=== PATIENT | female | born 1945 | race African-American/Black ===

== ENCOUNTER 2017-12-09 22:55 | Inpatient (IN) | payer MEDICARE, BC ==
[~2017-12-09] VITALS: Ht 157.5 cm; Wt 53.4 kg
[~2017-12-09 22:55] MED LIST: AMOX1TAB64 PO; LEVO50TA5 PO; LOVA40TA2 PO; NIAC500T9 PO; TRAM-47 PO
[2017-12-09] MEDS ORDERED: SODIUM CHLORIDE 0.9% 1,000 ML IV ONE (23:43)
[2017-12-10] MEDS ORDERED: SODIUM CHLORIDE FLUSH 10ML SYR IVF ONE
[2017-12-10] MEDS ORDERED: ONDANSETRON 2MG/ML, 2ML IVPush ONE
[2017-12-10 00:06] LABS: MEAN CORPUSCULAR HEMOGLOBIN 30.7 pg (27.0-34.8); MEAN CORPUSCULAR VOLUME 93.1 fL (80-100); MEAN PLATELET VOLUME 8.5 fL (7.4-10.4); PLATELET COUNT 234 x10^3/uL (130-400); RED BLOOD COUNT 4.16 x10^6/uL (3.82-5.3); RED CELL DISTRIBUTION WIDTH 13.3 % (9.6-15.2)
[2017-12-10 00:15] LABS: ALANINE AMINOTRANSFERASE 18 U/L (12-78); ALBUMIN 3.7 g/dL (3.4-5.0); ANION GAP 10 mmol/L (5-15); CALCIUM 8.6 mg/dL (8.5-10.1); CHLORIDE 102 mmol/L (98-107); CREATININE 1.22 mg/dL (0.55-1.02)
[2017-12-10 00:17] LABS: ALKALINE PHOSPHATASE 90 U/L (45-117); BILIRUBIN,TOTAL 0.4 mg/dL (0.2-1.0); TOTAL PROTEIN 7.5 g/dL (6.4-8.2)
[2017-12-10 00:20] LABS: TROPONIN I < 0.015 ng/mL (0.000-0.045)
[2017-12-10 00:57] LABS: MD YES
[2017-12-10] MEDS ORDERED: ONDANSETRON 2MG/ML, 2ML ONE (01:09)
[2017-12-10 01:14] LABS: BAND#(MANUAL) 2.82 x10^3/uL; BANDS%(MANUAL) 16 % (0-7); EOS#(MANUAL) 0.35 x10^3/uL (0.0-0.4); EOS% (MANUAL) 2 % (1-7); LYMPHS% (MANUAL) 4 % (22-44); MONOS#(MANUAL) 1.06 x10^3/uL (0.3-2.7); MONOS% (MANUAL) 6 % (2-9); REACTIVE LYMPHS # (MANUAL) 0.35 x10^3/uL (0-0); REACTIVE LYMPHS % (MANUAL) 2 % (0-0); SEG#(MANUAL) 12.32 x10^3/uL (1.8-6.8); SEGS% (MANUAL) 70 % (42-75)
[2017-12-10 01:15] LABS: OVALOCYTES 1+
[2017-12-10 01:16] LABS: <PLATELET ESTIMATE> ADEQUATE; LARGE PLATELETS 1+
[2017-12-10] MEDS ORDERED: OMNIPAQUE 350 MG/ML, 100ML BOTTLE ONE (01:44)
[2017-12-10 02:00] LABS: MICROSCOPIC AUTO
[2017-12-10 02:13] LABS: CULTURE INDICATED? NO
[2017-12-10] MEDS ORDERED: CIPROFLOXACIN/PMX 400MG/200ML 200 ML IV ONE (02:30)
[2017-12-10] MEDS ORDERED: METRONIDAZOLE PMX 500MG/100ML 100 ML IV ONE (02:30)
[2017-12-10] MEDS ORDERED: SODIUM CHLORIDE 0.9% 1,000 ML IV ONE (02:31)
[2017-12-10 02:48] VITALS: BP 144/58
[2017-12-10] MEDS ORDERED: METRONIDAZOLE PMX 500MG/100ML 100 ML ONE (02:52)
[2017-12-10] MEDS ORDERED: MORPHINE SULFATE 4 MG/ML, 1ML IVPush PRN (03:00)
[2017-12-10] MEDS ORDERED: POTASSIUM CHLORIDE 20 MEQ in LACTATED RINGERS 1,000 ML IV SCH (03:24)
[2017-12-10] MEDS ORDERED: morphine SULFATE 10 MG/ML, 1ML IVPush PRN (03:30)
[2017-12-10] MEDS ORDERED: METRONIDAZOLE PMX 500MG/100ML 100 ML IV SCH (03:30)
[2017-12-10] MEDS ORDERED: OXYcodone IR 5MG TABLET PO PRN (03:30)
[2017-12-10] MEDS ORDERED: CEFTRIAXONE PMX 1GM/50ML 50 ML IV SCH (03:30)
[2017-12-10] MEDS ORDERED: ONDANSETRON 2MG/ML, 2ML IVPush PRN (03:30)
[2017-12-10] MEDS ORDERED: ACETAMINOPHEN 325 MG TABLET PO PRN (03:30)
[2017-12-10] MEDS ORDERED: hydrALAzine 20 MG/ML, 1ML IVPush PRN (03:30)
[2017-12-10] MEDS ORDERED: ENOXAPARIN 40 MG/0.4 ML SQ SCH (03:30)
[2017-12-10] MEDS ORDERED: NIACIN 500 MG TABLET.ER PO SCH (09:00)
[2017-12-10] MEDS ORDERED: LEVOTHYROXINE 50 MCG TABLET PO SCH (09:00)
[2017-12-10] MEDS ORDERED: LOVASTATIN 40 MG TABLET PO SCH (21:00)
== END 2017-12-10 07:08 | disposition left against medical advice (07) | DRG 392 ==
LOC: ED 12-10 01:10 → EDIP 12-10 02:31 → 3NE 12-10 04:32
PROVIDERS: ADMIT Hospitalist; ATTEND Hospitalist
DX: A09 Infectious gastroenteritis and colitis, unspecified (principal); K86.89 Other specified diseases of pancreas; E86.9 Volume depletion, unspecified; D72.825 Bandemia; E03.9 Hypothyroidism, unspecified; E78.5 Hyperlipidemia, unspecified; I70.0 Atherosclerosis of aorta; E87.6 Hypokalemia; Z90.710 Acquired absence of both cervix and uterus
CPT/HCPCS: 36415; 71045; 74177; 80053; 81001; 83605; 83690; 84145; 84484; 85025; 87040; 93005; 96361; 96374; J0696; J2405; J3480; Q9967; J7030; J7120

== ENCOUNTER → 2018-01-04 | Outpatient (CLI) | payer MEDICARE, BC | END | disposition home or self-care (01) | LOC: CFH 10:15 | PROVIDERS: ATTEND Physician Assistant | DX: Z12.31 Encounter for screening mammogram for malignant neoplasm of breast (principal); K86.2 Cyst of pancreas | CPT/HCPCS: 74181; 77067 ==

== ENCOUNTER → 2018-02-03 | Outpatient (CLI) | payer MEDICARE, BC | END | disposition home or self-care (01) | LOC: STAR 09:00 | PROVIDERS: ATTEND Internal Medicine | DX: K86.2 Cyst of pancreas (principal); R07.89 Other chest pain; R94.31 Abnormal electrocardiogram [ECG] [EKG] | CPT/HCPCS: 93005 ==

== ENCOUNTER → 2018-08-25 | Outpatient (CLI) | payer MEDICARE, BC | END | disposition home or self-care (01) | LOC: CFH 10:21 | PROVIDERS: ATTEND Nurse Practitioner Family | DX: R41.3 Other amnesia (principal); G31.9 Degenerative disease of nervous system, unspecified; R90.82 White matter disease, unspecified | CPT/HCPCS: 70551 ==

== ENCOUNTER → 2018-10-14 | Outpatient (CLI) | payer MEDICARE, BC | END | disposition home or self-care (01) | LOC: CFH 08:26 | PROVIDERS: ATTEND Internal Medicine Cardiovascular Disease | DX: I34.0 Nonrheumatic mitral (valve) insufficiency (principal); I49.3 Ventricular premature depolarization; I10 Essential (primary) hypertension | CPT/HCPCS: 93306 ==

== ENCOUNTER → 2019-02-06 | Outpatient (CLI) | payer MEDICARE, BC | END | disposition home or self-care (01) | LOC: CFH 10:29 | PROVIDERS: ATTEND Family Medicine | DX: M85.88 Other specified disorders of bone density and structure, other site (principal) | CPT/HCPCS: 77080 ==